=== PATIENT | male | born 1950 | race Caucasian/White ===

== ENCOUNTER 2023-06-08 08:36 | Emergency (ER) | payer MEDICARE, SELFPAY ==
[2023-06-08 08:38] VITALS: BP 179/96
[2023-06-08 09:00] VITALS: BMI 26.4
[2023-06-08 09:09] VITALS: BP 178/91
--- NOTE | 2023-06-08 09:28 | ED.GENMED ---
History of Present Illness
General
Chief Complaint: Abdominal Pain
Source: patient and spouse
Exam Limitations: none
Time Seen by Provider: 06/08/23 09:03
Nursing documentation reviewed up to this point in time: agreed with
Travel History
Have you had any contact with someone who has COVID-19?: No
Do you have any symptoms of coronavirus? Fever > 100 degrees, chills, cough, shortness of breath, sore throat, loss of taste or smell, muscle aches, or headache?: No
History of Present Illness
History of Present Illness:
72-year-old male diabetic, on insulin prior hip fracture presents with abdominal pain nausea dry heaves vomit x 1 with diarrhea onset about 4 days ago not keeping anything down, not eating much, crampy mid abdominal pain, no chest pain some chills
but no fever no sick contacts no foreign travel no raw or undercooked foods
Past History
Past History
ED Past Medical History: Asthma, HTN, Hypercholesterolemia, IDDM and NIDDM
ED Past Surgical History: Cholecystectomy, Orthopedic and Urological
Social History
Tobacco: Non-smoker
Alcohol: None
Drug: None
Personal:
Living: with family
Employment: Retired
Review of Systems
Review of Systems
All Other Systems: Not applicable
Constitutional: Reports fatigue and chills; Denies fever
EENT: Reports no symptoms
Respiratory: Reports no symptoms
Cardiac: Reports no symptoms
ABD/GI: Reports abdominal pain, nausea, vomiting and diarrhea
: Reports no symptoms
Musculoskeletal: Reports no symptoms
Skin: Reports no symptoms
Neurological: Reports dizzy and weakness
Phy Exam
Physical Exam
Physical Exam:
Physical Exam
General: Nontoxic mild distress
Neck: Dry lips
Heart: Regular
Lungs: no acute respiratory distress. clear bilaterally
Abdomen: Nontender
Neuro: alert and oriented. no focal neurological deficits
Skin: no rash
Psychiatric: well kept. interactive and cooperative
Extremities: no edema.
Course
Orders/Labs/Results
Orders:
Orders
06/08/23 09:04
Electrocardiogram (*1) Urgent
Reason for Study: Abdominal Pain
EKG- Treatment ONCE
06/08/23 09:14
CMP [Comprehensive Metabolic Panel] Urgent
Complete Blood Count/With Diff Urgent
Lipase Urgent
Urinalysis Reflex To Culture Urgent
Date Specimen was Collected: 06/08/23
Time Specimen was Collected: 09:13
Urine Microscopic Reflex Cult Urgent
06/08/23 09:28
0.9% Sodium Chloride 1000 ml [Nss] 1,000 ml IV BOLUS
Ondansetron Injectable [Zofran] 4 mg IV NOW STA
06/08/23 09:42
Norovirus by PCR Urgent
BHARATI Source: Feces/Stool
Specimen Description:
Stool Culture Urgent
BHARATI Source: Feces/Stool
Specimen Description:
06/08/23 10:19
US Abdomen Complete/Upper Urgent
Comment:
Reason For Exam: pain t marjorie up
Abnormal Lab Results
06/08/23
09:14
MCV 78.4 L fL
(80.0-94.0)
MCHC 37.1 H g/dL
(33.0-37.0)
Glucose 194 H mg/dl
(70-99)
Total Bilirubin 3.2 H mg/dl
(0.2-1.3)
Urine Ketones 3+ A
(Negative)
Ur Occult Blood Reflex Trace A
(Negative)
Urine Glucose 1+ A
(Negative)
Urine Albumin (Reflex) 1+ A
(Neg - Trace)
06/08/23 09:14
04/21/24 09:14
Vital Signs
Initial and Last Documented VS:
Initial Vital Signs
Temp Pulse Resp BP Pulse Ox
97.7 F 75 20 179/96 98
06/08/23 08:38 06/08/23 08:38 06/08/23 08:38 06/08/23 08:38 06/08/23 08:38
Last Documented Vital Signs
Temp Pulse Resp BP Pulse Ox
97.7 F 71 15 179/96 100
06/08/23 08:38 06/08/23 08:47 06/08/23 08:47 06/08/23 08:38 06/08/23 09:00
MDM/Problems Addressed
Differential Diagnosis Includes:
Enteritis viral syndrome DKA dehydration
MDM/Problems Addressed:
Vomiting diarrhea
Chronic conditions affecting care:
Diabetes
Chronic conditions affecting care: DM
Acute Exacerbation and/or Progression of Chronic Illness: DM and Previous abdomnial surgery
*Pulse Oximetry
Patient hypoxic: no
*EKG
Interpreted by ED Provider?: Yes
Interpretation: normal
Comparison EKG: no comparison EKG present
Heart Rate: 78
Rate: normal
QRS Pattern: normal QRS
Ischemia: no ischemia
*Critical Care Note
Total Time (30-74mins, 75-104mins- exclusive of procedures): Not Applicable
Update Note
Update Note:
10:15 AM labs noted Cristina marsh is, looks like he had a cholecystectomy will check ultrasound to look at his common duct, otherwise his labs are fairly unremarkable, EKG nonischemic continue supportive care
12:25 PM patient states he is feeling much better ambulated without difficulty reviewed ultrasound with him, states he is always had high bilirubins before
ED Attending Note
-
Portions of this chart may have been created with voice recognition software.� Occasional wrong word or��sound alike� substitutions may have occurred due to the inherent limitations of voice recognition software.
Discharge Plan
Departure
Patient Disposition: Home (Routine Discharge)
Date of Disposition: 06/08/23
Time of Disposition: 12:26
Patient with high blood pressure during this ER visit?: No
Condition: Good
Discharge Problem:
Dehydration
Instructions: Nausea and Vomiting, Adult (DC), Diarrhea in adolescents and adults
Prescriptions:
No Action
polyethylene glycol 3350 [Miralax] 17 gram Powder In Packet
17 g PO DAILY PRN (Reason: constipation)
insulin lispro [Humalog KwikPen Insulin] 100 unit/mL Insulin Pen
3 unit SC AC
dutasteride 0.5 mg Capsule
0.5 mg PO DAILY
insulin glargine [Lantus Solostar U-100 Insulin] 100 unit/mL (3 mL) Insulin Pen
10 unit SC HS
oxycodone 10 mg Tablet
10 mg PO Q6H
Rx Instructions:
12/03/2022, patient filled this medication on 11/05/2022 for 120 tablets according to PDMP.
Serovital Hgh Supplement
1 cap PO HS
aspirin 325 mg Tablet
325 mg PO DAILY Qty: 30 0RF
docusate sodium 100 mg Capsule
100 mg PO BID Qty: 20 0RF
midodrine 5 mg Tablet
5 mg PO 0800,1300,1700 30 Days Qty: 90 0RF
oxycodone 5 mg Tablet
5 mg PO TIDPRN PRN (Reason: severe pain) 3 Days Qty: 10 0RF
acetaminophen [Tylenol Arthritis Pain] 650 mg tablet extended release
650 mg PO Q8H Qty: 30 0RF
Referrals:
Shayan Turpin MD [Family Provider] -
Interventions
Interventions:
*Risk Screen - Suicide Last Done: 06/08/23 09:38
*General Assessment Last Done: 06/08/23 09:00
*Neglect/Abuse Screening Last Done: 06/08/23 09:38
ED- Fall Risk Assessment Last Done: 06/08/23 09:00
*ED COVID-19 Vaccine History Last Done: 06/08/23 09:00
ZD-Xfmorb-Omtlzqxwbd Assessment Last Done: 06/08/23 09:00
Discharge Date and Time
Print Language: SAMOAN
[2023-06-08 09:31] LABS: % Basophils 0.5 % (0-2); % Eosinophils 1.5 % (0-6); % Immature Granulocytes 0.3 % (0-0.5); % Monocytes 5.6 % (1.7-9.3); % Neutrophils 70.1 % (42.2-75.2); Absolute Eosinophils 0.1 10^3/uL (0-0.7); Absolute Lymphocytes 1.6 10^3/uL (1.2-3.4); Absolute Monocytes 0.4 10^3/uL (0.1-0.6); Absolute Neutrophils 5.1 10^3/uL (1.4-6.5); Hematocrit 41.8 % (39.0-52.0); Hemoglobin 15.5 g/dL (13.0-18.0); Mean Corp Hgb Conc. 37.1 g/dL (33.0-37.0); Mean Corpuscular Hgb 29.1 pg (27.0-31.0); Mean Corpuscular Volume 78.4 fL (80.0-94.0); Mean Platelet Volume 8.8 fL (7.4-10.4); Nucleated Red Blood Cells % 0 % (-); Platelet Count 188 10^3/uL (130-400); Red Blood Cell Count 5.33 10^6/uL (4.70-6.10); Red Cell Dist. Width 13.4 % (11.5-14.5); White Blood Cell Count 7.3 10^3/uL (4.8-10.8)
[2023-06-08] MEDS: ZOFRAN 4 MG IV (09:34)
[2023-06-08] MEDS: NSS 1000 IV (09:35)
[2023-06-08 09:38] LABS: ALT (SGPT) 14 U/L (0-50); AST (SGOT) 22 U/L (17-59); Albumin 4.8 g/dl (3.5-5.0); Alkaline Phosphatase 87 U/L (38-126); Blood Urea Nitrogen 17 mg/dl (9-20); Calcium 9.7 mg/dl (8.4-10.2); Carbon Dioxide 24 mmol/L (22-30); Chloride 103 mmol/L (98-107); Estimated Creatinine Clearance 72 ml/min; Glucose 194 mg/dl (70-99); Lipase 86 U/L (23-300); Potassium 3.5 mmol/L (3.5-5.1); Sodium 136 mmol/L (135-145); Total Bilirubin 3.2 mg/dl (0.2-1.3); Total Protein 7.8 g/dl (6.3-8.2); eGFR > 60.00
[2023-06-08 09:39] LABS: Urine Albumin 1+ (Neg - Trace); Urine Bilirubin Negative (Negative); Urine Character Clear (Clear); Urine Color Yellow; Urine Glucose 1+ (Negative); Urine Ketone 3+ (Negative); Urine Leukocyte Negative (Negative); Urine Nitrite Negative (Negative); Urine Occult Blood Trace (Negative); Urine Specific Gravity 1.025 (<1.030); Urine Urobilinogen Negative (Neg - 1+)
[2023-06-08 10:00] VITALS: BP 164/83
[2023-06-08 10:32] LABS: Urine Hyaline Cast 0-2 /LPF (0-2); Urine Squamous Cell 0-2 /LPF (Few); Urine White Cell 0-2 /HPF (0-5)
[2023-06-08 10:33] LABS: Urine Red Blood Cell 0-2 /HPF (0-2)
[2023-06-08 11:09] VITALS: BP 172/82
[2023-06-08 12:06] VITALS: BP 160/86
--- NOTE | 2023-06-08 13:05 | EDRN ---
REviewed discharge instructions with patient. Verbalized understanding. Ambulated with steady gait to the lobby.
[2023-06-08 13:06] VITALS: BP 160/82
== END 2023-06-08 13:06 | disposition home or self-care (01) ==
LOC: EMR 08:36
PROVIDERS: Student in an Organized Health Care Education/Training Program; EMERGENCY PHYSICIAN Emergency Medicine; FAMILY PHYSICIAN Family Medicine
DX: E86.0 Dehydration (principal); E11.9 Type 2 diabetes mellitus without complications
CPT/HCPCS: 99285; 96374; 96361; 76700; 80053; 81003; 81015; 83690; 85025; 93005

== ENCOUNTER 2023-06-25 19:46 | Emergency (ER) | payer MEDICARE, SELFPAY ==
[2023-06-25 19:50] VITALS: BP 121/82; BMI 25.8
[2023-06-25 20:04] VITALS: BP 147/69
--- NOTE | 2023-06-25 20:36 | ED.GENMED ---
History of Present Illness
General
Chief Complaint: Heart Rate Problem
Source: patient, records and spouse
Exam Limitations: none
Time Seen by Provider: 06/25/23 19:58
Nursing documentation reviewed up to this point in time: agreed with
Travel History
Have you had any contact with someone who has COVID-19?: No
Do you have any symptoms of coronavirus? Fever > 100 degrees, chills, cough, shortness of breath, sore throat, loss of taste or smell, muscle aches, or headache?: No
History of Present Illness
History of Present Illness:
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
until today did not keep down much fluid, vomited, blood sugars elevated no fevers, no chest pain or shortness of breath felt like sleeping a lot, no diarrhea positive abdominal cramping
Past History
Past History
ED Past Medical History: Asthma, HTN, Hypercholesterolemia, IDDM and NIDDM
ED Past Surgical History: Cholecystectomy, Orthopedic and Urological
Social History
Tobacco: Non-smoker
Alcohol: None
Drug: None
Personal:
Living: with family
Employment: Retired
Review of Systems
Review of Systems
All Other Systems: Not applicable
Constitutional: Reports fatigue; Denies fever
EENT: Reports no symptoms
Respiratory: Reports no symptoms
Cardiac: Denies chest pain
ABD/GI: Reports abdominal pain, nausea and vomiting; Denies diarrhea or bloody stools
: Reports no symptoms
Musculoskeletal: Reports no symptoms
Skin: Reports no symptoms
Neurological: Reports weakness
Endocrine: Reports no symptoms
Hematologic/Lymphatic: Reports no symptoms
Phy Exam
Physical Exam
Physical Exam:
Physical Exam
General: 72-year-old male cooperative nontoxic
Neck: Dry lips patch on the left
Heart: Tachycardic
Lungs: no acute respiratory distress. clear bilaterally
Abdomen: Soft mild diffuse
Neuro: alert and oriented. Able to lift his legs and arms off the bed without difficulty, clear speech
Skin: no rash
Psychiatric: cooperative
Extremities: no edema.
Course
Orders/Labs/Results
Orders:
Orders
06/25/23 19:53
EKG [Electrocardiogram (*1)] Urgent
Reason for Study: Tachycardia
EKG- Treatment ONCE
06/25/23 20:28
0.9% Sodium Chloride 1000 ml [Nss] 1,000 ml IV BOLUS
Ondansetron Injectable [Zofran] 4 mg IV NOW STA
Pantoprazole [Protonix IV] 40 mg IV NOW STA
06/25/23 20:38
B-Hydroxybutyrate Urgent
Complete Blood Count/With Diff Urgent
Comprehensive Metabolic Panel Urgent
Troponin I Urgent
06/25/23 20:39
CT Head W/o Iv Contrast Urgent
Comment:
Reason For Exam: Weakness vomiting recurrence
06/25/23 21:32
UA Reflex to Culture [Urinalysis Reflex To Culture] Urgent
Date Specimen was Collected: 06/25/23
Time Specimen was Collected: 21:24
06/25/23 22:54
Ondansetron Orally Disint [Zofran Odt (Orally Disintegrating)] 4 mg PO NOW STA
Abnormal Lab Results
06/25/23 06/25/23
20:38 21:32
WBC 18.9 H 10^3/uL
(4.8-10.8)
RBC 4.64 L 10^6/uL
(4.70-6.10)
Hct 37.3 L %
(39.0-52.0)
RDW 15.1 H %
(11.5-14.5)
Abs Immat Gran (auto) 0.2 H 10^3/uL
(0-0.05)
Absolute Neuts (auto) 17.4 H 10^3/uL
(1.4-6.5)
Absolute Lymphs (auto) 0.6 L 10^3/uL
(1.2-3.4)
Immature Gran % 1.2 H %
(0-0.5)
Neutrophils % 91.9 H %
(42.2-75.2)
Lymphocytes % 3.2 L %
(20.5-51.1)
Sodium 131 L mmol/L
(135-145)
Carbon Dioxide 21 L mmol/L
(22-30)
Glucose 242 H mg/dl
(70-99)
Total Bilirubin 5.4 H mg/dl
(0.2-1.3)
AST 130 H U/L
(17-59)
ALT 192 H U/L
(0-50)
Urine Ketones 1+ A
(Negative)
Urine Bilirubin 1+ A
(Negative)
Urine Urobilinogen 2+ A
(Neg - 1+)
Urine Glucose 3+ A
(Negative)
06/25/23 20:38
06/25/23 20:38
Vital Signs
Initial and Last Documented VS:
Initial Vital Signs
Temp Pulse Resp BP Pulse Ox
98.3 F 127 24 121/82 96
06/25/23 19:50 06/25/23 19:50 06/25/23 19:50 06/25/23 19:50 06/25/23 19:50
Last Documented Vital Signs
Temp Pulse Resp BP Pulse Ox
98.7 F 98 24 136/67 97
06/25/23 22:53 06/25/23 22:45 06/25/23 22:45 06/25/23 22:00 06/25/23 22:45
MDM/Problems Addressed
Differential Diagnosis Includes:
Dehydration electrolyte abnormality viral syndrome,
MDM/Problems Addressed:
Fatigue weakness nausea vomiting
*Critical Care Note
Total Time (30-74mins, 75-104mins- exclusive of procedures): Not Applicable
Update Note
Update Note:
10:45 PM CAT scan noted labs noted patient states he is feeling much better he is tolerating some ice chips and water now he is scheduled to have a CT angio to evaluate his 3rd nerve palsy on Friday he is can have to prep with Benadryl and steroid
before hand I did offer the family and expediting scan this evening patient states he would like to go home and recuperate and come back as scheduled
He previously had a 6th nerve palsy years ago treated with prisms, no issues with 3rd nerve palsy has ptosis on the left on exam pupils reactive
His white blood cell count is up, his abdomen is soft and nontender has not received any narcotics
ED Attending Note
-
Portions of this chart may have been created with voice recognition software.� Occasional wrong word or��sound alike� substitutions may have occurred due to the inherent limitations of voice recognition software.
Discharge Plan
Departure
Patient Disposition: Home (Routine Discharge)
Date of Disposition: 06/25/23
Time of Disposition: 22:52
Patient with high blood pressure during this ER visit?: No
Condition: Good
Discharge Problem:
Vomiting
Instructions: [place] Diet, Acute Nausea and Vomiting
Prescriptions:
New
ondansetron 4 mg tablet,disintegrating
4 mg PO Q8H PRN (Reason: nausea and vomiting) Qty: 20 0RF
No Action
polyethylene glycol 3350 [Miralax] 17 gram Powder In Packet
17 g PO DAILY PRN (Reason: constipation)
insulin lispro [Humalog KwikPen Insulin] 100 unit/mL Insulin Pen
3 unit SC AC
dutasteride 0.5 mg Capsule
0.5 mg PO DAILY
insulin glargine [Lantus Solostar U-100 Insulin] 100 unit/mL (3 mL) Insulin Pen
10 unit SC HS
oxycodone 10 mg Tablet
10 mg PO Q6H
Rx Instructions:
12/03/2022, patient filled this medication on 11/05/2022 for 120 tablets according to PDMP.
Serovital Hgh Supplement
1 cap PO HS
aspirin 325 mg Tablet
325 mg PO DAILY Qty: 30 0RF
docusate sodium 100 mg Capsule
100 mg PO BID Qty: 20 0RF
midodrine 5 mg Tablet
5 mg PO 0800,1300,1700 30 Days Qty: 90 0RF
oxycodone 5 mg Tablet
5 mg PO TIDPRN PRN (Reason: severe pain) 3 Days Qty: 10 0RF
acetaminophen [Tylenol Arthritis Pain] 650 mg tablet extended release
650 mg PO Q8H Qty: 30 0RF
ondansetron 4 mg tablet,disintegrating
4 mg PO Q8H PRN (Reason: nausea and vomiting) Qty: 10 0RF
loperamide [Imodium A-D] 2 mg capsule
2 mg PO Q6H PRN (Reason: loose stool) Qty: 20 0RF
Referrals:
Shayan Turpin MD [Family Provider] - Next open appointment
Activity Restrictions/Additional Instructions:
Return to the ER for worsening symptoms obtain your CAT scan on Friday as scheduled
Interventions
Interventions:
*Risk Screen - Suicide Last Done: 06/25/23 19:50
*General Assessment Last Done: 06/25/23 21:05
*Neglect/Abuse Screening Last Done: 06/25/23 19:50
ED- Fall Risk Assessment Last Done: 06/25/23 19:50
*ED COVID-19 Vaccine History Last Done: 06/25/23 21:05
ED- Cardiac Assessment Last Done: 06/25/23 21:04
ED- Pulmonary Assessment Last Done: 06/25/23 21:04
Discharge Date and Time
Print Language: [place]
[2023-06-25] MEDS: NSS 1000 IV (20:40)
[2023-06-25] MEDS: ZOFRAN 4 MG IV (20:40)
[2023-06-25] MEDS: PROTONIX IV 40 MG IV (20:40)
[2023-06-25 20:47] LABS: % Basophils 0.3 % (0-2); % Eosinophils 0.2 % (0-6); % Immature Granulocytes 1.2 % (0-0.5); % Lymphocytes 3.2 % (20.5-51.1); % Monocytes 3.2 % (1.7-9.3); % Neutrophils 91.9 % (42.2-75.2); Absolute Basophils 0.1 10^3/uL (0-0.2); Absolute Immature Granulocytes 0.2 10^3/uL (0-0.05); Absolute Lymphocytes 0.6 10^3/uL (1.2-3.4); Absolute Monocytes 0.6 10^3/uL (0.1-0.6); Absolute Neutrophils 17.4 10^3/uL (1.4-6.5); Hematocrit 37.3 % (39.0-52.0); Hemoglobin 13.8 g/dL (13.0-18.0); Mean Corpuscular Hgb 29.7 pg (27.0-31.0); Mean Corpuscular Volume 80.4 fL (80.0-94.0); Mean Platelet Volume 9.1 fL (7.4-10.4); Nucleated Red Blood Cells % 0 % (-); Platelet Count 184 10^3/uL (130-400); Red Blood Cell Count 4.64 10^6/uL (4.70-6.10); Red Cell Dist. Width 15.1 % (11.5-14.5); White Blood Cell Count 18.9 10^3/uL (4.8-10.8)
[2023-06-25 21:00] VITALS: BP 138/67
[2023-06-25 21:05] LABS: ALT (SGPT) 192 U/L (0-50); AST (SGOT) 130 U/L (17-59); Albumin 3.9 g/dl (3.5-5.0); Alkaline Phosphatase 104 U/L (38-126); Blood Urea Nitrogen 20 mg/dl (9-20); Calcium 8.9 mg/dl (8.4-10.2); Carbon Dioxide 21 mmol/L (22-30); Chloride 100 mmol/L (98-107); Estimated Creatinine Clearance 72 ml/min; Glucose 242 mg/dl (70-99); Potassium 3.5 mmol/L (3.5-5.1); Sodium 131 mmol/L (135-145); Total Bilirubin 5.4 mg/dl (0.2-1.3); Total Protein 6.4 g/dl (6.3-8.2); eGFR > 60.00
[2023-06-25 21:12] LABS: B-Hydroxybutyrate 0.15 mmol/L (0.02-0.27)
[2023-06-25 21:15] LABS: Troponin I 0.019 ng/ml
[2023-06-25 21:37] LABS: Urine Albumin Trace (Neg - Trace); Urine Bilirubin 1+ (Negative); Urine Character Clear (Clear); Urine Color Yellow; Urine Glucose 3+ (Negative); Urine Ketone 1+ (Negative); Urine Leukocyte Negative (Negative); Urine Nitrite Negative (Negative); Urine Occult Blood Negative (Negative); Urine Urobilinogen 2+ (Neg - 1+)
[2023-06-25 22:00] VITALS: BP 136/67
[2023-06-25] MEDS: ZOFRAN ODT (ORALLY DISINTEGRATING) 4 MG PO (22:59)
== END 2023-06-25 23:16 | disposition home or self-care (01) ==
LOC: EMR 19:46
PROVIDERS: EMERGENCY PHYSICIAN Emergency Medicine; FAMILY PHYSICIAN Family Medicine
DX: R11.2 Nausea with vomiting, unspecified (principal); E11.9 Type 2 diabetes mellitus without complications
CPT/HCPCS: 99285; 96374; 96375; 96361; 70450; 80053; 81003; 82010; 84484; 85025; 93005

== ENCOUNTER → 2023-07-08 14:24 | Outpatient (REF) | payer MEDICARE, SELFPAY | LOC: RAD 14:24 | PROVIDERS: ATTENDING PHYSICIAN Ophthalmology; FAMILY PHYSICIAN Family Medicine | DX: H49.00 Third [oculomotor] nerve palsy, unspecified eye (principal) | CPT/HCPCS: 70496; Q9967 ==

== ENCOUNTER → 2023-07-15 20:01 | Outpatient (REF) | payer MEDICARE, SELFPAY | LOC: MRI 3T 20:01 | PROVIDERS: ATTENDING PHYSICIAN Ophthalmology; FAMILY PHYSICIAN Family Medicine | DX: H49.00 Third [oculomotor] nerve palsy, unspecified eye (principal) | CPT/HCPCS: 70553; A9575 ==

== ENCOUNTER 2023-08-03 23:59 | Inpatient (IN) | payer MEDICARE, SELFPAY ==
[2023-08-03 19:31] VITALS: BP 155/88
[2023-08-03 19:57] LABS: % Basophils 0.6 % (0-2); % Eosinophils 0.9 % (0-6); % Immature Granulocytes 0.2 % (0-0.5); % Lymphocytes 9.3 % (20.5-51.1); % Monocytes 5.2 % (1.7-9.3); % Neutrophils 83.8 % (42.2-75.2); Absolute Basophils 0.1 10^3/uL (0-0.2); Absolute Eosinophils 0.1 10^3/uL (0-0.7); Absolute Lymphocytes 0.8 10^3/uL (1.2-3.4); Absolute Monocytes 0.4 10^3/uL (0.1-0.6); Absolute Neutrophils 7.1 10^3/uL (1.4-6.5); Hematocrit 36.5 % (39.0-52.0); Hemoglobin 12.7 g/dL (13.0-18.0); Mean Corp Hgb Conc. 34.8 g/dL (33.0-37.0); Mean Corpuscular Hgb 29.1 pg (27.0-31.0); Mean Corpuscular Volume 83.5 fL (80.0-94.0); Mean Platelet Volume 9.3 fL (7.4-10.4); Nucleated Red Blood Cells % 0 % (-); Platelet Count 221 10^3/uL (130-400); Red Blood Cell Count 4.37 10^6/uL (4.70-6.10); Red Cell Dist. Width 16.1 % (11.5-14.5); White Blood Cell Count 8.5 10^3/uL (4.8-10.8)
[2023-08-03 20:12] LABS: ALT (SGPT) 119 U/L (0-50); AST (SGOT) 193 U/L (17-59); Albumin 3.9 g/dl (3.5-5.0); Alkaline Phosphatase 316 U/L (38-126); Blood Urea Nitrogen 12 mg/dl (9-20); Calcium 9.2 mg/dl (8.4-10.2); Carbon Dioxide 27 mmol/L (22-30); Chloride 101 mmol/L (98-107); Glucose 222 mg/dl (70-99); Lipase 285 U/L (23-300); Potassium 3.5 mmol/L (3.5-5.1); Sodium 139 mmol/L (135-145); Total Bilirubin 5.5 mg/dl (0.2-1.3); Total Protein 7.3 g/dl (6.3-8.2); eGFR > 60.00
[2023-08-03 20:42] LABS: Urine Albumin 1+ (Neg - Trace); Urine Bilirubin 3+ (Negative); Urine Character Clear (Clear); Urine Color Amber; Urine Glucose 2+ (Negative); Urine Ketone 1+ (Negative); Urine Leukocyte Trace (Negative); Urine Nitrite Positive (Negative); Urine Occult Blood Trace (Negative); Urine Specific Gravity 1.025 (<1.030); Urine Urobilinogen 4+ (Neg - 1+)
[2023-08-03 21:05] LABS: Urine Amorphous Seen
[2023-08-03 21:06] LABS: Urine Bacteria Few (Negative); Urine Calcium Oxalate Crystals Present
[2023-08-03 21:11] LABS: Urine Red Blood Cell 16-20 /HPF (0-2)
[2023-08-03 21:12] LABS: Urine White Cell None Seen /HPF (0-5)
--- NOTE | 2023-08-03 21:25 | ED.GENMED ---
History of Present Illness
General
Chief Complaint: Abdominal Pain
Source: patient
Time Seen by Provider: 08/03/23 21:07
Travel History
Have you had any contact with someone who has COVID-19?: No
Do you have any symptoms of coronavirus? Fever > 100 degrees, chills, cough, shortness of breath, sore throat, loss of taste or smell, muscle aches, or headache?: No
History of Present Illness
History of Present Illness:
This patient is a 72-year-old male who says that he has been sick off and on for at least the last 6 weeks. He has been to the emergency department twice and just saw his GI doctor last week, is due to get labs tomorrow looking for mono, CMV, and a
hepatitis panel. he developed diffuse abdominal cramping associated with nausea, anorexia, and episodes of vomiting that are generally relieved with antiemetic medication. He describes the abdominal discomfort is mostly in the upper area
and constant, described as 'achy' without exacerbating relieving factors, without radiation. His last bowel movement was yesterday morning and is normal in appearance, no light stools, black stools, or blood. He denies fever, chills, chest pain,
dyspnea, new back pain. He noted since that his urine has been dark but today he noted gross hematuria. Patient denies recent Tylenol use, patient does not drink alcohol. Patient denies travel.
Past History
Past History
ED Past Medical History: Asthma, HTN, Hypercholesterolemia, IDDM and NIDDM
ED Past Surgical History: Cholecystectomy, Orthopedic and Urological
Social History
Tobacco: Non-smoker
Alcohol: None
Drug: Marijuana
Personal:
Living: with family
Employment: Retired
Phy Exam
Physical Exam
Physical Exam:
GENERAL: Alert , in no apparent distress
EYE: pupils equal and reactive
NECK: Supple, no significant adenopathy.
ENT: o/p clr, mm dry
CARDIAC: Regular rate and rhythm .
LUNGS: Clear breath sounds bilaterally, no acute respiratory distress, no wheezes/rales/rhonchi
ABDOMEN: Soft, diffuse nonspecific mild tenderness, no r/g, no cvat
NEUROLOGICAL: Alert and oriented, no focal neuro deficits
SKIN: Warm and dry, skin intact.
MUSCULOSKELETAL: No edema, well perfused.
PSYCH: Normal and appropriate interaction.
Course
Orders/Labs/Results
Orders:
Orders
08/03/23 19:34
Electrocardiogram (*1) Urgent
Reason for Study: Abdominal Pain
EKG- Treatment ONCE
IV Insert/Care/Rem.- Treatment PRN
08/03/23 19:50
Complete Blood Count/With Diff Urgent
Comprehensive Metabolic Panel Urgent
Lipase Urgent
08/03/23 20:31
Urinalysis Reflex To Culture Urgent
Date Specimen was Collected: 08/03/23
Time Specimen was Collected: 19:34
Urine Microscopic Reflex Cult Urgent
Urine Culture Urgent
BHARATI Source: U
Specimen Description:
Date Specimen was Collected: 08/03/23
Time Specimen was Collected: 19:34
08/03/23 21:27
0.9% Sodium Chloride 500 ml [Nss] 500 ml IV BOLUS
Ondansetron Injectable [Zofran] 4 mg IV NOW STA
08/03/23 21:32
Tylenol [Acetaminophen] Stat
08/03/23 22:17
CT Abd/pel Without Iv Or Oral Urgent
Comment:
Reason For Exam: abd pain,n, v, abnl lfts
08/03/23 23:15
Morphine Sulfate 4 mg .ROUTE .STK-MED ONE
Morphine Sulfate 4 mg IV NOW STA
08/03/23 23:47
Admit/Transfer Patient As Directed
Co-Sign Provider:
Level of Care: Inpatient admission
Assign to:: Medical/Surgical
Physician / Group: Bruce
Diagnosis: Choledolcholithiasis
Reason for Hospitalization: IVFs, GI Consult
Expected length of stay greater than two midnights?: Yes
ELOS- Estimated Length of Stay in days: 3
I certify the patient meets the requirements for IP care: Yes
08/03/23 23:48
Code Status As Directed
Resuscitation Status: Full Code
08/04/23 01:57
0.9% Sodium Chloride 1000 ml [Nss] 1,000 ml IV 80 mls/hr
Acetaminophen [Tylenol] 650 mg PO Q4HPRN PRN
Dextrose 50%-Water [Dextrose 50% Syringe] 12.5 grams IV [id number] PRN
Glucagon [GlucaGen] 1 mg IM PRN PRN
HYDROmorphone [Dilaudid] 0.5 mg IV Q3HPRN PRN
Ondansetron Injectable [Zofran] 4 mg IV Q6HPRN PRN
08/04/23 01:57
Consult Notification Routine
Specialty to Notify: Gastroenterology
Date consulting provider notified: 08/04/23
Time consulting provider notified: 06:00
Notified:: Service
GASTROINTESTINAL CONSULT Routine
Consulting Provider: Jimmy Correa
Was physician already notified: No
Reason for consult: CBD Stone
Activity As Directed
Activity Level: Out of Bed-Early Mobility
With Assistance
Bedside Glucose Monitoring As Directed
Frequency: AC&HS
Additional Instructions:: Change to q6h if pt on TPN, tube feeding or not eating
I&O [Intake/ Output] As Directed
Frequency: q12h
Vital Signs As Directed
Frequency: Per unit guidelines
Weight As Directed
Frequency: Daily
DX Deep Vein Thrombosis Video Routine
08/04/23 Breakfast
NPO
Allow oral meds: Yes
Allow clear liquids: Sips of Clears
NPO with Ice Chips: Yes
08/04/23 06:30
Complete Blood Count/No Diff IN AM
Comprehensive Metabolic Panel IN AM
Glycohemoglobin (HgbA1c) IN AM
Magnesium IN AM
08/04/23 07:30
Insulin Aspart Corrective Mod [Novolog Flexpen-Moderate Resistance] See Protocol SC AC
08/04/23 08:00
Finasteride [Proscar] 5 mg PO DAILY
08/04/23 18:00
Enoxaparin Sodium [Lovenox] 40 mg SC QPM
Abnormal Lab Results
08/03/23 08/03/23 08/03/23
19:50 20:31 21:32
RBC 4.37 L 10^6/uL
(4.70-6.10)
Hgb 12.7 L g/dL
(13.0-18.0)
Hct 36.5 L %
(39.0-52.0)
RDW 16.1 H %
(11.5-14.5)
Absolute Neuts (auto) 7.1 H 10^3/uL
(1.4-6.5)
Absolute Lymphs (auto) 0.8 L 10^3/uL
(1.2-3.4)
Neutrophils % 83.8 H %
(42.2-75.2)
Lymphocytes % 9.3 L %
(20.5-51.1)
Glucose 222 H mg/dl
(70-99)
Total Bilirubin 5.5 H mg/dl
(0.2-1.3)
AST 193 H U/L
(17-59)
ALT 119 H U/L
(0-50)
Alkaline Phosphatase 316 H U/L
(38-126)
Urine Ketones 1+ A
(Negative)
Ur Occult Blood Reflex Trace A
(Negative)
Urine Nitrite (Reflex) Positive A
(Negative)
Urine Bilirubin 3+ A
(Negative)
Urine Urobilinogen 4+ A
(Neg - 1+)
Leukocyte Esterase Rfl Trace A
(Negative)
Urine RBC 16-20 A /HPF
(0-2)
Urine Bacteria (Reflex) Few A
(Negative)
Urine Glucose 2+ A
(Negative)
Urine Albumin (Reflex) 1+ A
(Neg - Trace)
Acetaminophen < 10 L ug/ml
(10-30)
08/03/23 19:50
08/03/23 19:50
Vital Signs
Initial and Last Documented VS:
Initial Vital Signs
Temp Pulse Resp BP Pulse Ox
97.9 F 80 20 155/88 99
08/03/23 19:31 08/03/23 19:31 08/03/23 19:31 08/03/23 19:31 08/03/23 19:31
Last Documented Vital Signs
Temp Pulse Resp BP Pulse Ox
98 F 69 16 160/94 99
08/06/23 07:45 08/06/23 07:45 08/06/23 07:45 08/06/23 07:45 08/06/23 07:45
*Critical Care Note
Total Time (30-74mins, 75-104mins- exclusive of procedures): Not Applicable
Update Note
Update Note:
Patient presents to the Emergency Department with __abdominal pain, nausea, vomiting
Number and Complexity of Problems Addressed at the Encounter
� Chronic conditions affecting care:
� Acute Exacerbation and/or Progression of Chronic Illness:
� Differential Diagnosis includes: But not limited to infectious hepatitis, Tylenol related hepatitis, gastroenteritis, kidney stone, etc. etc.
Amount and/or Complexity of Data to be Reviewed and Analyzed
� I performed an independent evaluation of and my interpretation is:
EKG:read by me, nsr with 1st degree block, no acute ischemia
CT:Markedly limited evaluation without intravenous or oral contrast.
Mild hepatosplenomegaly.
Prior cholecystectomy. Calcific density for which approximate 0.7 cm calculus at the level of the distal common bile duct as well as biliary tract dilatation cannot be excluded, evaluation limited without intravenous contrast. Recommend MRI/MRCP
complete evaluation.
Small volume and creatinine calcifications compatible with chronic pancreatitis.
Cannot exclude small duodenal diverticulum.
Small simple right renal cyst.
Marked beam hardening artifact from left hip arthroplasty significantly limiting evaluation of the true pelvic soft tissues.
Xrays:
Laboratory Studies:elevated bilirubin, transaminases
Other:
� Review of other/old records reveals:
� Clinical information was obtained by an independent historian: who is bedside
� Prescriptions/Medications Considered but not given:
� Further testing considered but not performed:
Risk of Complications and/or Morbidity or Mortality of Patient Management
� Social determinants of health affecting care:
� Discussion with other providers (PCP, Hospitalists, Consultants, etc):
� Escalation of care including admission/observation vs risk of discharge considered: 1103 pm...ct suggestive of possible cbd stone, with n/v/abd pain and lfts abnl will need to further explore with MRCP. Will text hospitalist
for admission, and they to consult GI. No fever, leukocytosis, focal pain, etc to suggest ascend cholangitis.
ED Attending Note
-
Portions of this chart may have been created with voice recognition software.� Occasional wrong word or��sound alike� substitutions may have occurred due to the inherent limitations of voice recognition software.
Discharge Plan
Departure
Patient Disposition: Admit
Date of Disposition: 08/03/23
Time of Disposition: 23:04
Presentation/result/management discussed w/ accepting MD/DO: Hospitalist
Condition: Good
Discharge Problem:
Abdominal pain
Interventions
Interventions:
*Risk Screen - Suicide Last Done: 08/03/23 21:56
*General Assessment Last Done: 08/03/23 21:56
*Neglect/Abuse Screening Last Done: 08/03/23 21:56
ED- Fall Risk Assessment Last Done: 08/03/23 21:56
*ED COVID-19 Vaccine History Last Done: 08/03/23 21:56
*Nursing Disposition Last Done: 08/04/23 01:53
HW-Rrnfpl-Cpzalnekzg Assessment Last Done: 08/03/23 21:41
Discharge Date and Time
Discharge Date/Time: 08/04/23 01:53
[2023-08-03 21:28] VITALS: BP 154/75
[2023-08-03] MEDS: NSS 500 IV (21:32)
[2023-08-03] MEDS: ZOFRAN 4 MG IV (21:33)
[2023-08-03 21:57] LABS: Acetaminophen < 10 ug/ml (10-30)
[2023-08-03 22:00] VITALS: BP 146/74
[2023-08-03] MEDS: MORPHINE SULFATE 4 MG IV (23:16)
[2023-08-03 23:25] VITALS: BP 176/76
--- NOTE | 2023-08-03 23:57 | HPS.HSE ---
Addendum entered and electronically signed by Brian Barrera DO 08/04/23 01:09:
Patient seen and examined independently. Agree with findings and plan as set forth yb Claire Hayden PA-C.
Patient is a 72y M with PMH significant for DM-II and chronic low back pain who presents to ED complaining of intermittent abdominal pain, nausea / vomiting and general weakness and malaise for the past 2-3 months. Patient has been seen in the
ED on multiple prior occasions for similar symptoms. Today patient had recurrent pain and nausea and returned to the ED. Work-up here reveals abnormal LFTs (specifically bilirubin) and CT showing possible CBD stone / dilation.
Ass:
Abdominal Pain, N/V
Abnormal LFTs / Hyperbilirubinemia
DM-II
Chronic Low Back Pain
Chronic Opioid Dependence
Plan:
Admit for further evaluation and treatment.
NPO, IVFs, pain control, etc.
Check MRCP in the AM for better evaluation of CBD / possible obstruction.
GI evaluation for additional recommendations.
Follow for any new / worsening symptoms.
Original Note:
Family Physician
-
Family Physician: Shayan Turpin
Chief Complaint
-
Nausea and Abdominal Pain
History of Present Illness
This is a 72 year old male with past medical history of diabetes mellitus, and chronic pain with opioid dependence who presents to the emergency department with abdominal pain. The patient states he has been experiencing waxing and waning abdominal
pain, nausea, and vomiting since June 07. He states he has been managing this with Zofran at home but notes the abdominal pain, nausea, and vomiting was worse today, prompting him to present to the emergency department. The patient reports he was
in the emergency department in both May and June for similar symptoms. The patient states the pain is diffuse but is the worst in the right upper quadrant. He notes his noticed his skin has been slightly yellow since his symptoms began. The
patient reports he had his gallbladder removed in 2006. He denies chest pain, dyspnea, sweats, fever, chills, and hematemesis.
Medical History
Past Medical History
Past Medical History: Reports Other
Additional Past Medical History:
Diabetes Mellitus, Type II
Chronic Pain with Opioid Dependence
Peripheral Neuropathy
Osteoarthritis
BPH
Past Surgical History: Reports Other
Additional Past Surgical History:
Left Hip ORIF
Cholecystectomy
Social History
Tobacco: Non-smoker
Alcohol: None
Family History
Family History: Other (Father: Metastatic Lung Cancer)
Allergies / Home Medications
Allergies reflects when Allergies were last updated in [employer].
Home Medications with original date entered in [employer]
Allergy/Medication List:
Allergies
Allergy/AdvReac Type Severity Reaction Status Date / Time
cat dander Allergy COUGH Verified 08/03/23 19:29
ciprofloxacin Allergy Rash Verified 08/03/23 19:29
dog dander Allergy COUGH Verified 08/03/23 19:29
Iodinated Contrast Media Allergy XRAY Verified 08/03/23 19:29
[Iodinated Contrast- Oral DYE-RASH
and IV Dye]
pollen extracts Allergy COUGH Verified 08/03/23 19:29
Home Medications
dutasteride 0.5 mg capsule 0.5 mg PO DAILY 12/03/22
insulin glargine 100 unit/mL (3 mL) subcutaneous pen (Lantus Solostar U-100 Insulin) 10 unit SC HS 12/03/22
insulin lispro 100 unit/mL subcutaneous pen (Humalog KwikPen (U-100) Insulin) 3 - 6 unit SC AC 12/03/22
oxycodone 10 mg tablet 10 mg PO Q4HPRN PRN Moderate/Severe Pain 12/03/22
ondansetron 4 mg disintegrating tablet 4 mg PO Q8H PRN nausea and vomiting #10 tabs 06/08/23
Review of Systems
-
A 12 point ROS was completed and negative except as noted: Yes
Constitutional: Denies Fever or Chills
Respiratory: Denies Cough or Trouble Breathing
Cardiac: Denies Chest Pain or Palpitations
Abdomen/GI: Reports See HPI
Physical Exam
Vital Signs
Vital Signs
Temp Pulse Resp BP Pulse Ox
97.9 F 76 11 176/76 98
08/03/23 19:31 08/03/23 23:45 08/03/23 23:45 08/03/23 23:25 08/03/23 23:45
Physical Exam
General: Comfortable and Conversant
HEENT: Moist mucous membranes and Other (Sclera Icteric)
Respiratory: Clear and Non Labored Respirations
Cardiac: S1/S2 and Regular Rhythm
GI: Soft and Tender (Epigastric and RUQ without rebound or guarding)
Musculoskeletal: No Clubbing, No Cyanosis and No Edema
Skin: Warm, Dry and Jaundice
Neuro: Awake, Alert, Oriented and Nonfocal/grossly intact
Laboratory Results
-
08/03/23 19:50
08/03/23 19:50
Laboratory Results
Total Bilirubin 5.5 mg/dl (0.2-1.3) H 08/03/23 19:50
AST 193 U/L (17-59) H 08/03/23 19:50
ALT 119 U/L (0-50) H 08/03/23 19:50
Alkaline Phosphatase 316 U/L (38-126) H 08/03/23 19:50
Lipase 285 U/L (23-300) 08/03/23 19:50
Data Reviewed
-
CT Scan: Report Reviewed by me
Lab Data: Labs Reviewed by me
Old Records: Reviewed
Impression/Plan
-
Choledocholithiasis
-Consult GI
-Check Abd MRI/MRCP
-Continue to trend LFTs
-Continue NPO/IVFs
-Continue Zofran for nausea and Dilaudid for pain
Diabetes Mellitus, Type II
-Give half usual dose of Lantus
-Monitor sugars and continue coverage insulin
Chronic Pain with Opioid Dependence
-Continue Dilaudid IV prn until able to resume oral oxycodone
DVT proph: Lovenox
Code Status: Full Code
[2023-08-04] VITALS (9 sets, daily range): BP systolic 139–177; BP diastolic 72–97; BMI 24.8
[2023-08-04] MEDS: LANTUS 0.0500000000000000028 UNITS SC ×2 (01:29→21:41)
[2023-08-04 01:31] LABS: Glucose - Point of Care 177 mg/dl (70-99)
[2023-08-04] MEDS: NSS 1000 IV ×2 (02:22→19:26)
[2023-08-04] MEDS: DILAUDID 0.5 MG IV ×5 (02:26→23:08)
[2023-08-04 05:46] LABS: Glucose - Point of Care 213 mg/dl (70-99)
[2023-08-04] MEDS: NOVOLOG FLEXPEN-MODERATE RESISTANCE 3 UNITS SC ×3 (05:49→17:01)
[2023-08-04 06:59] LABS: Hematocrit 31.6 % (39.0-52.0); Hemoglobin 11.3 g/dL (13.0-18.0); Mean Corp Hgb Conc. 35.8 g/dL (33.0-37.0); Mean Platelet Volume 9.4 fL (7.4-10.4); Platelet Count 183 10^3/uL (130-400); Red Cell Dist. Width 16.4 % (11.5-14.5); White Blood Cell Count 7.9 10^3/uL (4.8-10.8)
[2023-08-04 07:44] LABS: ALT (SGPT) 109 U/L (0-50); AST (SGOT) 124 U/L (17-59); Albumin 3.1 g/dl (3.5-5.0); Alkaline Phosphatase 280 U/L (38-126); Blood Urea Nitrogen 11 mg/dl (9-20); Calcium 8.8 mg/dl (8.4-10.2); Carbon Dioxide 23 mmol/L (22-30); Chloride 103 mmol/L (98-107); Estimated Creatinine Clearance 90 ml/min; Glucose 210 mg/dl (70-99); Magnesium 1.6 mg/dl (1.6-2.3); Potassium 3.1 mmol/L (3.5-5.1); Sodium 135 mmol/L (135-145); Total Bilirubin 6.9 mg/dl (0.2-1.3); Total Protein 6.1 g/dl (6.3-8.2); eGFR > 60.00
[2023-08-04] MEDS: PROSCAR 5 MG PO (08:04)
[2023-08-04 08:55] LABS: Direct Bilirubin 3.8 mg/dl (0.0-0.4)
--- NOTE | 2023-08-04 09:13 | CON.GI ---
Addendum entered and electronically signed by Jimmy Correa MD 08/04/23 12:57:
I saw and examined the patient.
The DRAIN TILER's note was reviewed and I agree with the note.
Impression:
Right upper quadrant abdominal pain/Nausea/vomiting/ Elevated LFTs
MRI/MRCP
IMPRESSION:
1. Choledocholithiasis, with at least 2 filling defects in the distal common bile duct.
2. Trace amount of adjacent edema. No fluid collection.
3. Hepatosplenomegaly.
4. No enhancing mass on postcontrast imaging
plan
NPO
will schedule for ERCP today
trend LFT
Original Note:
Consultation
-
Date/Time Consultation Requested: 08/04/23 0157
Date/Time Consultation Performed: 08/04/23 0900
Requesting Provider: LISBET El
Performing Provider: Dr. Correa/BRADY Saeed
Reason for Consultation: elevated LFTs, CBD stone seen on CT imaging
Medical History
Chief Complaint / HPI
Chief Complaint: RUQ pain, N/V, jaundice
History of Present Illness:
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
history of intermittent right upper quadrant discomfort associated with nausea and vomiting. Patient noticed that he was jaundiced approximately 2 weeks ago and sought outpatient GI ([facility]) guidance. Represents to the hospital with
recurrence right upper quadrant discomfort with nausea and vomiting. Asked to evaluate for the same. The patient states that in May he had acute onset of right upper quadrant discomfort, nausea, vomiting and diarrhea. He came to the emergency
room and was given antiemetics. The patient states he felt better and was discharged home. He had a recurrence of symptoms again in the beginning of June. Similar to the time prior. He also had a 3rd nerve palsy left and was being followed by
ophthalmology with eye patching. He underwent imaging including a head CT, head CT angiography and a brain MRI in June. The patient states that he followed up with [facility] first week in July because he started noticing that he became jaundiced.
It was also noticed that he had elevated LFTs on his ER evaluation 06/25/2023. The patient did not have a chance to get lab work performed that was ordered. The patient then had recurrence of symptoms starting last that included right upper
quadrant pain that he describes as dull, radiating into the middle of his back although he is unsure because he has chronic back pain, nausea, vomiting, bilirubinuria. No changes in his bowel color. He has had chills usually when he vomits. No
documented fever. He denies any history of hepatitis, tattoos, piercings, IV drug use. No recent sick contacts. No changes in medications. No prior history of pancreatitis that he is aware of. The patient does not drink any alcohol.
Past Medical History
Past Medical History: Asthma, HTN, Hypercholesterolemia, IDDM and Other (chronic pain, IgM deficiency, BPH, 3rd nerve palsy)
Past Surgical History: Cholecystectomy, Orthopedic (left hip ) and Urological (vasectomy)
Social History
Tobacco: Non-Smoker
Alcohol: None
Drug: None
Personal:
Living: With Family
Family History
Family History: Other (No fam hx of GI malignancy or IBD)
Allergies / Home Medications
Allergy/AdvReac Type Severity Reaction Status Date / Time
iodine Allergy Severe Swelling Verified 08/04/23 02:23
cat dander Allergy COUGH Verified 08/03/23 19:29
ciprofloxacin Allergy Rash Verified 08/03/23 19:29
dog dander Allergy COUGH Verified 08/03/23 19:29
Iodinated Contrast Media Allergy XRAY Verified 08/03/23 19:29
[Iodinated Contrast- Oral DYE-RASH
and IV Dye]
pollen extracts Allergy COUGH Verified 08/03/23 19:29
�Medication �Instructions �Recorded
dutasteride 0.5 mg capsule 0.5 mg PO DAILY Urinary Issue 12/03/22
insulin glargine 100 unit/mL (3 10 unit SC HS Diabetes 12/03/22
mL) subcutaneous pen (Lantus
Solostar U-100 Insulin)
insulin lispro 100 unit/mL 3 - 6 unit SC AC Diabetes 12/03/22
subcutaneous pen (Humalog KwikPen
(U-100) Insulin)
oxycodone 10 mg tablet 10 mg PO Q4HPRN PRN 12/03/22
Moderate/Severe Pain
ondansetron 4 mg disintegrating 4 mg PO Q8H PRN nausea and 06/08/23
tablet vomiting #10 tabs
Review of Systems
-
All other systems: A 12 pt ROS was Negative except as stated above in HPI
Vital Signs
Temp Pulse Resp BP Pulse Ox
97.6 F 88 16 156/82 98
08/04/23 07:00 08/04/23 07:00 08/04/23 07:00 08/04/23 07:00 08/04/23 07:00
Physical Exam
Exam
General: Other (looks unwell)
HEENT: Other (+ sclera icteric)
Respiratory: Clear
Cardiac: Regular Rhythm
GI: Soft, Non Distended, Normal Bowel Sounds and Tender (RUQ/periumbilical)
Musculoskeletal: No Edema
Neuro: AO x 3
Psych: Calm
Results
WBC 7.9 10^3/uL (4.8-10.8) 08/04/23 06:30
Hgb 11.3 g/dL (13.0-18.0) L 08/04/23 06:30
Hct 31.6 % (39.0-52.0) L 08/04/23 06:30
MCV 81.0 fL (80.0-94.0) 08/04/23 06:30
Plt Count 183 10^3/uL (130-400) 08/04/23 06:30
Absolute Neuts (auto) 7.1 10^3/uL (1.4-6.5) H 08/03/23 19:50
Sodium 135 mmol/L (135-145) 08/04/23 06:30
Potassium 3.1 mmol/L (3.5-5.1) L 08/04/23 06:30
Chloride 103 mmol/L (98-107) 08/04/23 06:30
Carbon Dioxide 23 mmol/L (22-30) 08/04/23 06:30
BUN 11 mg/dl (9-20) 08/04/23 06:30
Creatinine 0.8 mg/dL (0.7-1.3) 08/04/23 06:30
Calcium 8.8 mg/dl (8.4-10.2) 08/04/23 06:30
Total Bilirubin 6.9 mg/dl (0.2-1.3) H 08/04/23 06:30
AST 124 U/L (17-59) H 08/04/23 06:30
ALT 109 U/L (0-50) H 08/04/23 06:30
Alkaline Phosphatase 280 U/L (38-126) H 08/04/23 06:30
Lipase 285 U/L (23-300) 08/03/23 19:50
Diagnostic Image Results:
CT Abd/Pelvis without oral or IV contrast 08/03/23:
IMPRESSION:
Markedly limited evaluation without intravenous or oral contrast.
Mild hepatosplenomegaly.
Prior cholecystectomy. Calcific density for which approximate 0.7 cm calculus at the level of the distal common bile duct as well as biliary tract dilatation cannot be excluded, evaluation limited without intravenous contrast. Recommend MRI/MRCP
complete evaluation.
Small volume and creatinine calcifications compatible with chronic pancreatitis.
Cannot exclude small duodenal diverticulum.
Small simple right renal cyst.
Marked beam hardening artifact from left hip arthroplasty significantly limiting evaluation of the true pelvic soft tissues.
Electronically signed by Anthony Rascon MD, 08/03/2023 10:49 PM
US Abd 06/08/23:
IMPRESSION:
Prior cholecystectomy. Common bile duct within normal limits, 7 mm. The pancreas is obscured by bowel gas.
Electronically signed by Gabe Garcia MD 06/08/2023 11:54 AM
Prior GI Procedures:
EGD:
Colonoscopy: [facility] (date and records not available to me)
Assessment / Plan
-
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
history of intermittent right upper quadrant discomfort associated with nausea and vomiting. Patient noticed that he was jaundiced approximately 2 weeks ago and sought outpatient GI ([facility]) guidance. Represents to the hospital with
recurrence right upper quadrant discomfort with nausea and vomiting. Asked to evaluate for the same. WBC 7.9, hemoglobin 11.3, hematocrit 31.6, platelets 183, Sodium 135, potassium 3.1, chloride 103, CO2 23, BUN 11, creatinine 0.8, glucose 210,
calcium 8.8, total bilirubin 6.9, direct bilirubin 3.8, AST 124, ALT 109, alk phos 280.
Impression:
Right upper quadrant pain
Nausea/vomiting
Elevated LFTs
Other diagnoses:
Recent left third nerve palsy
Diabetes
Chronic low back pain
Chronic opioid dependence
Plan:
-MRI/MRCP to be performed now, eval for CBD stone. Possible ERCP if MRCP positive.
-N.p.o./IV fluids
-Analgesia/antiemetics
-Add EBV/hepatitis panel
-Trend LFTs
-Further recommendations to be forthcoming
Data Reviewed
-
Old Records: Reviewed
-
-
Thank you for consultation and allowing me to participate in the patient's care. Please call the observation assistant GI physician during the after hours with any questions or concerns.
[2023-08-04 10:16] LABS: Glycohemoglobin (HgbA1c) 6.9 % (4.0-5.6)
[2023-08-04] MEDS: KCL 270 MEQ IV (10:19)
[2023-08-04] MEDS: ROCEPHIN 1000 MG IV (10:20)
[2023-08-04] MEDS: STERILE WATER FOR INJECTION 10 ML IV (10:20)
[2023-08-04 12:08] LABS: Glucose - Point of Care 215 mg/dl (70-99)
--- NOTE | 2023-08-04 12:58 | W.PN.HOSP.TC ---
Today's Communication/Plan
-
see outlined plan
Assessment / Plan
Assessment / Plan
Assessment:
Abdominal Pain, N/V
Abnormal LFTs/Hyperbilirubinemia
- CT: Prior cholecystectomy. Calcific density for which approximate 0.7 cm calculus at the level of the distal common bile duct as well as biliary tract dilatation cannot be excluded, evaluation limited without intravenous contrast. Recommend
MRI/MRCP complete evaluation.
- MRCP: Choledocholithiasis, with at least 2 filling defects in the distal common bile duct.
- GI following; for ERCP today
- continue pain control and anti-emetics
- continue IVF
Possibly UTI
- start Rocephin, pending cultures
IDDM
- continue Lantus, 5 units (home dose 10 units)
- continue SSI
- diabetic diet when cleared for diet
- A1c: 6.9%
Chronic Low Back Pain
Chronic Opioid Dependence
- continue IV Dilaudid for acute pain then transition back to Oxycodone post procedure
Hypokalemia - replete prn
DVT ppx: Lovenox
Code: Full
Anticipated Discharge: 24 - 48 hours
Subjective/Interval History
-
Date of Service: August 04, 2023
reports RUQ pain
no other new complaints
CBD filling defect found on MRI
Objective Data
-
Labs:
Laboratory Results
08/04/23
06:30
WBC 7.9
Hgb 11.3 L
Hct 31.6 L
Plt Count 183
Sodium 135
Potassium 3.1 L
Chloride 103
Carbon Dioxide 23
BUN 11
Creatinine 0.8
Glucose 210 H
Calcium 8.8
Total Bilirubin 6.9 H
AST 124 H
ALT 109 H
Alkaline Phosphatase 280 H
Vital Signs:
Vital Signs
Temp Pulse Resp BP Pulse Ox
97.6 F 88 16 156/82 98
08/04/23 07:00 08/04/23 07:00 08/04/23 07:00 08/04/23 07:00 08/04/23 07:00
I&O
08/03/23 08/04/23 08/05/23
06:59 06:59 06:59
Intake Total 400 / 400
Output Total 425 / 425
Balance -25 / -25
Physical Exam
-
General: No Apparent Distress
HEENT: Normocephalic and Atraumatic
Respiratory: Negative Wheezes
Cardiac: Regular Rhythm and S1/S2
GI: Other (RUQ pain)
Musculoskeletal: No Edema
Neuro: AO x 3
Psych: Calm
Data Reviewed
-
Total Time Spent with Patient (in minutes): 42
Labs: Labs Reviewed by me
[2023-08-04 14:00] LABS: Glucose - Point of Care 226 mg/dl (70-99)
[2023-08-04 16:39] LABS: Glucose - Point of Care 203 mg/dl (70-99)
[2023-08-04] MEDS: ZOSYN 50 IV ×2 (16:51→21:41)
[2023-08-04] MEDS: LOVENOX 40 MG SC (17:01)
[2023-08-04] MEDS: NOVOLOG FLEXPEN-MODERATE RESISTANCE SC (18:17)
[2023-08-04 18:51] LABS: Hepatitis B Surface Antigen Negative (Negative)
[2023-08-04 19:08] LABS: Hepatitis B Surface Antibody Negative; Hepatitis C Antibody Negative (Negative)
[2023-08-04 21:32] LABS: Glucose - Point of Care 252 mg/dl (70-99)
[2023-08-04 22:41] LABS: Hepatitis A IgM Antibody Negative (Negative); Hepatitis B Core Ab, IgM Negative (Negative)
[2023-08-05] MEDS: DILAUDID 0.5 MG IV ×3 (03:03→11:16)
[2023-08-05] MEDS: ZOSYN 50 IV ×4 (03:04→21:24)
[2023-08-05 06:00] VITALS: BMI 25.0
[2023-08-05 07:09] LABS: Hematocrit 31.3 % (39.0-52.0); Hemoglobin 10.8 g/dL (13.0-18.0); Mean Corp Hgb Conc. 34.5 g/dL (33.0-37.0); Mean Corpuscular Hgb 28.5 pg (27.0-31.0); Mean Corpuscular Volume 82.6 fL (80.0-94.0); Mean Platelet Volume 9.4 fL (7.4-10.4); Platelet Count 160 10^3/uL (130-400); Red Blood Cell Count 3.79 10^6/uL (4.70-6.10); Red Cell Dist. Width 15.9 % (11.5-14.5); White Blood Cell Count 7.2 10^3/uL (4.8-10.8)
[2023-08-05 07:37] VITALS: BP 138/76
[2023-08-05 07:51] LABS: Glucose - Point of Care 198 mg/dl (70-99)
[2023-08-05 07:56] LABS: ALT (SGPT) 77 U/L (0-50); AST (SGOT) 74 U/L (17-59); Albumin 2.9 g/dl (3.5-5.0); Alkaline Phosphatase 249 U/L (38-126); Blood Urea Nitrogen 15 mg/dl (9-20); Calcium 8.6 mg/dl (8.4-10.2); Carbon Dioxide 24 mmol/L (22-30); Chloride 103 mmol/L (98-107); Direct Bilirubin 5.6 mg/dl (0.0-0.4); Estimated Creatinine Clearance 80 ml/min; Glucose 155 mg/dl (70-99); Potassium 3.5 mmol/L (3.5-5.1); Sodium 135 mmol/L (135-145); Total Bilirubin 8.6 mg/dl (0.2-1.3); Total Protein 5.9 g/dl (6.3-8.2); eGFR > 60.00
[2023-08-05] MEDS: PROSCAR 5 MG PO (08:04)
[2023-08-05] MEDS: NOVOLOG FLEXPEN-MODERATE RESISTANCE 1 UNITS SC (08:05)
[2023-08-05 10:32] VITALS: BP 158/88; PULSE 72; O2SAT 99
[2023-08-05 10:35] VITALS: BP 158/88; PULSE 72; O2SAT 99
[2023-08-05] MEDS: NSS IV (10:37)
[2023-08-05 11:43] LABS: Glucose - Point of Care 257 mg/dl (70-99)
[2023-08-05] MEDS: NOVOLOG FLEXPEN-MODERATE RESISTANCE 5 UNITS SC (11:58)
--- NOTE | 2023-08-05 12:15 | W.PN.HOSP.TC ---
Today's Communication/Plan
-
diet
continue Abx
pain control
follow LFTs in AM
d/w GI
Assessment / Plan
Assessment / Plan
Assessment:
Abdominal Pain, N/V
Abnormal LFTs/Hyperbilirubinemia
- CT: Prior cholecystectomy. Calcific density for which approximate 0.7 cm calculus at the level of the distal common bile duct as well as biliary tract dilatation cannot be excluded, evaluation limited without intravenous contrast. Recommend
MRI/MRCP complete evaluation.
- MRCP: Choledocholithiasis, with at least 2 filling defects in the distal common bile duct.
- s/p ERCP 08/03: s/p biliary sphincterotomy and balloon extraction. Pus in biliary tree
- continue pain control and anti-emetics
- diet advance to Low residue
- Abx: Zosyn day 2
Possibly UTI
- culture negative
IDDM
- continue Lantus 10 units
- continue SSI
- diabetic diet when cleared for diet
- A1c: 6.9%
Chronic Low Back Pain
Chronic Opioid Dependence
- continue PO Oxycodone prn
Hypokalemia - replete prn
DVT ppx: Lovenox
Code: Full
Anticipated Discharge: 24 - 48 hours
Subjective/Interval History
-
Date of Service: August 05, 2023
pain improving
no fevers
Objective Data
-
Labs:
Laboratory Results
08/05/23
06:50
WBC 7.2
Hgb 10.8 L
Hct 31.3 L
Plt Count 160
Sodium 135
Potassium 3.5
Chloride 103
Carbon Dioxide 24
BUN 15
Creatinine 0.9
Glucose 155 H
Calcium 8.6
Total Bilirubin 8.6 H
AST 74 H
ALT 77 H
Alkaline Phosphatase 249 H
Vital Signs:
Vital Signs
Temp Pulse Resp BP Pulse Ox
97.9 F 70 16 138/76 98
08/05/23 07:37 08/05/23 07:37 08/05/23 07:37 08/05/23 07:37 08/05/23 07:37
I&O
08/04/23 08/05/23 08/06/23
06:59 06:59 06:59
Intake Total 400 / 400 2540 / 2540
Output Total 425 / 425 625 / 625
Balance -25 / -25 1914 / 1914
Physical Exam
-
General: No Apparent Distress
HEENT: Normocephalic and Atraumatic
Respiratory: Negative Wheezes
Cardiac: Regular Rhythm and S1/S2
GI: Soft and Tender (mild RUQ)
Genito-urinary: No Costovertebral Tender
Neuro: AO x 3
Psych: Calm
Data Reviewed
-
Total Time Spent with Patient (in minutes): 41
Labs: Labs Reviewed by me
--- NOTE | 2023-08-05 12:26 | CM ---
Reviewed chart, met with patient to obtain information for assessment. Patient lives with his in a single, two story home, with one step. He uses a cane for outside distances. He has been using a walker with PT. Patient described himself as
independent with his ADLs, dressing, and bathing. His does most of the social worker psychiatric, cooking, cleaning and laundry.
Patient has had VN services in the past through .
He has not been to a SNF but has done outpatient OT.
Patient stated that he has a walker and a shower chair.
He has a prescription plan and uses [facility] in [place] for all of her medications.
Patient's PCP is, Dr. Shayan Engle.
Patient stated that he would like to return home when he is medically stable. He would be agreeable to VN services if indicated for PT.
Plan: Case management will continue to follow and assist with discharge planning. Home with VN if indicated.
[2023-08-05] MEDS: ROXICODONE 10 MG PO ×3 (14:41→23:07)
[2023-08-05 15:10] VITALS: BP 164/82
--- NOTE | 2023-08-05 16:01 | W.PN.GI.CBS2 ---
Today's Communication / Plan
-
trend LFTs, IV abx, advance diet
Assessment / Plan
-
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
history of intermittent right upper quadrant discomfort associated with nausea and vomiting. Patient noticed that he was jaundiced approximately 2 weeks ago and sought outpatient GI ([facility]) guidance. Represents to the hospital with
recurrence right upper quadrant discomfort with nausea and vomiting. Asked to evaluate for the same. WBC 7.9, hemoglobin 11.3, hematocrit 31.6, platelets 183, Sodium 135, potassium 3.1, chloride 103, CO2 23, BUN 11, creatinine 0.8, glucose 210,
calcium 8.8, total bilirubin 6.9, direct bilirubin 3.8, AST 124, ALT 109, alk phos 280.
Impression:
Right upper quadrant pain
Nausea/vomiting
Elevated LFTs
Other diagnoses:
Recent left third nerve palsy
Diabetes
Chronic low back pain
Chronic opioid dependence
Underwent ERCP with stones and pus removed c/w cholangitis, sphincterotomy and balloons sweep done
I d/w biliary team - bili went up today, will recheck tomorrow, ok to advance diet to low fat; d/w hospitalist
No fever/WBC
Continue IV abx
Pt asking to follow with Dr. Correa watermelon harvesting supervisor I sent msg to hotel front office manager to set up appt - [place] [facility] [place] 4pm card given to patient
Total Time Spent with Patient (in minutes): 35
Subjective
Subjective
Date of Service: August 05, 2023
Pain improved tolerating diet
Objective
Data Reviewed
Laboratory Data:
Laboratory Results
08/05/23 06:50
08/05/23 06:50
Laboratory Results
Magnesium 1.6 mg/dl (1.6-2.3) 08/04/23 06:30
Total Bilirubin 8.6 mg/dl (0.2-1.3) H 08/05/23 06:50
AST 74 U/L (17-59) H 08/05/23 06:50
ALT 77 U/L (0-50) H 08/05/23 06:50
Alkaline Phosphatase 249 U/L (38-126) H 08/05/23 06:50
Lipase 285 U/L (23-300) 08/03/23 19:50
Vital Signs and I&O:
Vital Signs
Temp Pulse Resp BP Pulse Ox
98 F 70 16 164/82 100
08/05/23 15:10 08/05/23 15:10 08/05/23 15:10 08/05/23 15:10 08/05/23 15:10
I&O
08/04/23 08/05/23 08/06/23
06:59 06:59 06:59
Intake Total 400 / 400 2540 / 2540
Output Total 425 / 425 625 / 625
Balance -25 / -25 1914
Physical Exam
Physical Exam
GI: Non Distended and Non Tender
[2023-08-05 16:55] LABS: Glucose - Point of Care 212 mg/dl (70-99)
[2023-08-05] MEDS: LOVENOX 40 MG SC (17:02)
[2023-08-05] MEDS: NOVOLOG FLEXPEN-MODERATE RESISTANCE 3 UNITS SC (17:03)
[2023-08-05 17:24] LABS: EBV-EA (D) Ab IgG >150.0 U/mL (0.0-10.9); EBV-VCA IgG Antibodies >750.0 U/mL (0.0-21.9); EBV-VCA IgM Antibodies 52.9 U/mL (0.0-43.9)
[2023-08-05 21:24] LABS: Glucose - Point of Care 259 mg/dl (70-99)
[2023-08-05] MEDS: LANTUS 0.100000000000000006 UNITS SC (21:24)
[2023-08-05 23:00] VITALS: BP 163/83
[2023-08-06] MEDS: ROXICODONE 10 MG PO ×2 (03:07→07:47)
--- NOTE | 2023-08-06 03:49 | DOWNTIME ---
There was a [employer] Client Teletype Installer Downtime on 08/06/2023 from 0100 to 08/06/2023 at 0337. Downtime documentation of patient's care, including medication administrations, has been reconciled in the electronic record per guidelines. Refer to the
patient's paper chart under the miscellaneous tab to see printed paper medication records and downtime forms.
[2023-08-06] MEDS: ZOSYN 50 IV ×2 (04:13→09:28)
[2023-08-06 06:00] VITALS: BMI 25.2
[2023-08-06 07:02] LABS: % Basophils 0.8 % (0-2); % Eosinophils 3.7 % (0-6); % Immature Granulocytes 0.4 % (0-0.5); % Lymphocytes 21.3 % (20.5-51.1); % Monocytes 5.5 % (1.7-9.3); % Neutrophils 68.3 % (42.2-75.2); Absolute Eosinophils 0.2 10^3/uL (0-0.7); Absolute Lymphocytes 1.1 10^3/uL (1.2-3.4); Absolute Monocytes 0.3 10^3/uL (0.1-0.6); Absolute Neutrophils 3.5 10^3/uL (1.4-6.5); Hematocrit 29.7 % (39.0-52.0); Hemoglobin 10.8 g/dL (13.0-18.0); Mean Corp Hgb Conc. 36.4 g/dL (33.0-37.0); Mean Corpuscular Volume 79.8 fL (80.0-94.0); Mean Platelet Volume 9.4 fL (7.4-10.4); Nucleated Red Blood Cells % 0 % (-); Platelet Count 171 10^3/uL (130-400); Red Blood Cell Count 3.72 10^6/uL (4.70-6.10); Red Cell Dist. Width 15.8 % (11.5-14.5); White Blood Cell Count 5.1 10^3/uL (4.8-10.8)
[2023-08-06 07:45] VITALS: BP 160/94
[2023-08-06] MEDS: PROSCAR 5 MG PO (07:49)
[2023-08-06 07:58] LABS: Glucose - Point of Care 174 mg/dl (70-99)
[2023-08-06 08:20] LABS: ALT (SGPT) 62 U/L (0-50); AST (SGOT) 44 U/L (17-59); Alkaline Phosphatase 242 U/L (38-126); Blood Urea Nitrogen 12 mg/dl (9-20); Calcium 8.5 mg/dl (8.4-10.2); Carbon Dioxide 26 mmol/L (22-30); Chloride 101 mmol/L (98-107); Direct Bilirubin 2.4 mg/dl (0.0-0.4); Estimated Creatinine Clearance 72 ml/min; Glucose 152 mg/dl (70-99); Potassium 3.1 mmol/L (3.5-5.1); Sodium 135 mmol/L (135-145); Total Bilirubin 4.4 mg/dl (0.2-1.3); Total Protein 5.9 g/dl (6.3-8.2); eGFR > 60.00
[2023-08-06] MEDS: NOVOLOG FLEXPEN-MODERATE RESISTANCE 1 UNITS SC (09:26)
[2023-08-06] MEDS: KCL 40 MEQ PO (09:27)
--- NOTE | 2023-08-06 09:29 | W.PN.HOSP.TC ---
Today's Communication/Plan
-
dc to home today
repeat LFTs outpatient
Assessment / Plan
Assessment / Plan
Assessment:
Abdominal Pain, N/V
Abnormal LFTs/Hyperbilirubinemia
- CT: Prior cholecystectomy. Calcific density for which approximate 0.7 cm calculus at the level of the distal common bile duct as well as biliary tract dilatation cannot be excluded, evaluation limited without intravenous contrast. Recommend
MRI/MRCP complete evaluation.
- MRCP: Choledocholithiasis, with at least 2 filling defects in the distal common bile duct.
- s/p ERCP 08/03: s/p biliary sphincterotomy and balloon extraction. Pus in biliary tree
- continue pain control and anti-emetics
- diet advance to Low fat
- Abx: discharge on Augmentin x 6 days further
- OP G/I Follow up
Possibly UTI
- culture negative
IDDM
- continue Lantus 10 units
- continue SSI
- diabetic diet when cleared for diet
- A1c: 6.9%
Chronic Low Back Pain
Chronic Opioid Dependence
- continue PO Oxycodone prn
Hypokalemia - replete prn
DVT ppx: Lovenox
Code: Full
More than 30 minutes spent in discharge including
Final examination of the patient
Summarizing hospital stay
Instructions for continuing care to all relevant caregivers
Preparation of discharge records, prescriptions, and referral forms
Total time spent (in minutes): 41
Anticipated Discharge: Today
Subjective/Interval History
-
Date of Service: August 06, 2023
no fever, pain or chills
WBC normal
Objective Data
-
Labs:
Laboratory Results
08/06/23
06:21
WBC 5.1
Hgb 10.8 L
Hct 29.7 L
Plt Count 171
Sodium 135
Potassium 3.1 L
Chloride 101
Carbon Dioxide 26
BUN 12
Creatinine 1.0
Glucose 152 H
Calcium 8.5
Total Bilirubin 4.4 H
AST 44
ALT 62 H
Alkaline Phosphatase 242 H
Vital Signs:
Vital Signs
Temp Pulse Resp BP Pulse Ox
98 F 69 16 160/94 99
08/06/23 07:45 08/06/23 07:45 08/06/23 07:45 08/06/23 07:45 08/06/23 07:45
I&O
08/05/23 08/06/23 08/07/23
06:59 06:59 06:59
Intake Total 2540 / 2540 1900 / 1900
Output Total 625 / 625 950 / 950
Balance 1915 / 1915 950 / 950
Physical Exam
-
General: No Apparent Distress
HEENT: Normocephalic and Atraumatic
Respiratory: Negative Wheezes
Cardiac: Regular Rhythm and S1/S2
GI: Soft and Nontender
Genito-urinary: No Costovertebral Tender
Neuro: AO x 3
Hematologic / Lymphatic: No Lymphadenopathy
Psych: Calm
Data Reviewed
-
Total Time Spent with Patient (in minutes): 41
Labs: Labs Reviewed by me
--- NOTE | 2023-08-06 09:39 | W.DS.TRANS ---
DC Summary - [employer]man
-
Discharge Instructions:
Discharge Diagnosis/Procedures common bile duct stones s/p ERCP 08/03
Diet Low Fat
Activity As tolerated
Bathing Restrictions None
Blood Work Repeat liver function tests Thursday 08/10
Other Services OT,PT
Instructions:
Stand-Alone Forms:
Changes to Home Medications: No
Discharge Medications:
DC Medications w/original date entered in [facility]
dutasteride 0.5 mg capsule 0.5 mg PO DAILY Urinary Issue 12/03/22
insulin glargine 100 unit/mL (3 mL) subcutaneous pen (Lantus Solostar U-100 Insulin) 10 unit SC HS Diabetes 12/03/22
insulin lispro 100 unit/mL subcutaneous pen (Humalog KwikPen (U-100) Insulin) 3 - 6 unit SC AC Diabetes 12/03/22
oxycodone 10 mg tablet 10 mg PO Q4HPRN PRN Moderate/Severe Pain 12/03/22
ondansetron 4 mg disintegrating tablet 4 mg PO Q8H PRN nausea and vomiting #10 tabs 06/08/23
amoxicillin 875 mg-potassium clavulanate 125 mg tablet 1 tab PO Q12H #12 tabs 08/06/23
Home Medication Changes
Pending Results: No
Total time spent discharging patient (in min): 41
--- NOTE | 2023-08-06 09:47 | W.PN.GI.CBS2 ---
Addendum entered and electronically signed by Rachel Rico MD 08/06/23 11:24:
I saw and examined the patient.
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
Comment: 72-year-old male past medical history as below presenting with cholangitis. Status post ERCP as below. LFTs improved. No pain, fevers, white blood cell count. Plan for discharge with 7-day course of antibiotics. Follow-up Dr. Correa
outpatient. Repeat LFTs in 1 week.
Original Note:
Today's Communication / Plan
-
Okay for discharge from GI standpoint. He will continue on a total of 7-day course of antibiotics. Repeat LFTs on Friday. He has a follow-up with Dr. Correa in the office. GI will sign off, please call back with questions or concerns
Assessment / Plan
-
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
with 2-month history of intermittent right upper quadrant discomfort associated with nausea and vomiting. Patient noticed that he was jaundiced approximately 2 weeks ago and sought outpatient GI ([facility]) guidance. He then presented to the ""hospital with recurrence of right upper quadrant discomfort with nausea and vomiting. Asked to evaluate for the same. WBC 7.9, hemoglobin 11.3, hematocrit 31.6, platelets 183, Sodium 135, potassium 3.1, chloride 103, CO2 23, BUN 11, creatinine
0.8, glucose 210, calcium 8.8, total bilirubin 6.9, direct bilirubin 3.8, AST 124, ALT 109, alk phos 280.
08/04/23 ERCP: Choledocholithiasis was found. Complete removal was accomplished by biliary sphincterotomy and balloon extraction. A biliary sphincterotomy was performed. The biliary tree was swept and pus/ sludge was found.
Problem list:
-Cholangitis
-Right upper quadrant pain 2/2 choledocholithiasis
-Nausea/vomiting
-Elevated LFTs
Other diagnoses:
-Recent left third nerve palsy
-Diabetes
-Chronic low back pain
-Chronic opioid dependence
Recommendations:
-Status post ERCP with findings of pus in the biliary tree, concerning for cholangitis. Today his symptoms are improved and his LFTs are downtrending. He is tolerating his diet.
-He should continue on a course of antibiotics for a total of [address] Rico and Dr. Quarles.
-Will repeat his LFT's on Thursday 08/10
-He has a follow-up appointment scheduled with Dr. Correa on 08/28 at 4 PM. He does have a card and this is on his instruction for discharge.
-I did give him precautions to return to the ER which include fevers, chills, abdominal pain, or ongoing/worsening jaundice
-Advise she should continue on a low-fat diet.
-He should avoid alcohol completely
-At this point he is okay for discharge from GI standpoint. Will sign off, please call back with questions or concerns.
Subjective
Subjective
Date of Service: August 06, 2023
The patient was seen and examined at the bedside. He reports he feels well today and is tolerating his diet. He is anticipating discharge. His LFTs are trending down and he has had no fevers.
Objective
Data Reviewed
Laboratory Data:
Laboratory Results
08/06/23 06:21
08/06/23 06:21
Laboratory Results
Magnesium 1.6 mg/dl (1.6-2.3) 08/04/23 06:30
Total Bilirubin 4.4 mg/dl (0.2-1.3) H 08/06/23 06:21
AST 44 U/L (17-59) 08/06/23 06:21
ALT 62 U/L (0-50) H 08/06/23 06:21
Alkaline Phosphatase 242 U/L (38-126) H 08/06/23 06:21
Lipase 285 U/L (23-300) 08/03/23 19:50
Vital Signs and I&O:
Vital Signs
Temp Pulse Resp BP Pulse Ox
98 F 69 16 160/94 99
08/06/23 07:45 08/06/23 07:45 08/06/23 07:45 08/06/23 07:45 08/06/23 07:45
I&O
08/05/23 08/06/23 08/07/23
06:59 06:59 06:59
Intake Total 2540 / 2540 1900 / 1900
Output Total 625 / 625 950 / 950
Balance 1914 / 1914 950 / 950
Physical Exam
Physical Exam
HEENT: Other (Mild bilateral scleral icterus)
Cardiology: S1 and S2 (Regular rate/rhythm)
Pulmonary: Clear
GI: Soft, Non Distended, Tender (Minimally tender to the right lower quadrant) and Normal Bowel Sounds
Extremities: No Edema
Jaundice
== END 2023-08-06 11:04 | disposition home or self-care (01) | DRG 445 ==
LOC: 3 WEST ACU 23:59
PROVIDERS: Nurse Practitioner; Physician Assistant Medical; ADMITTING PHYSICIAN Hospitalist; ATTENDING PHYSICIAN Internal Medicine; CONSULT PHYSICIAN Internal Medicine Gastroenterology; EMERGENCY PHYSICIAN Emergency Medicine; FAMILY PHYSICIAN Family Medicine
PROC: BF111ZZ Fluoroscopy of Biliary and Pancreatic Ducts using Low Osmolar Contrast (ICD-10-PCS; 2023-08-04)
PROC: 0FC98ZZ Extirpation of Matter from Common Bile Duct, Via Natural or Artificial Opening Endoscopic (ICD-10-PCS; 2023-08-04)
DX: K80.30 Calculus of bile duct with cholangitis, unspecified, without obstruction (principal); F11.20 Opioid dependence, uncomplicated; K86.1 Other chronic pancreatitis; N39.0 Urinary tract infection, site not specified; E11.40 Type 2 diabetes mellitus with diabetic neuropathy, unspecified; E78.00 Pure hypercholesterolemia, unspecified; I10 Essential (primary) hypertension; J45.909 Unspecified asthma, uncomplicated; E87.6 Hypokalemia; N28.1 Cyst of kidney, acquired; R16.2 Hepatomegaly with splenomegaly, not elsewhere classified; R31.0 Gross hematuria; G89.29 Other chronic pain; M54.50 Low back pain, unspecified; M19.90 Unspecified osteoarthritis, unspecified site; N40.0 Benign prostatic hyperplasia without lower urinary tract symptoms; Z88.1 Allergy status to other antibiotic agents; Z90.49 Acquired absence of other specified parts of digestive tract; Z91.041 Radiographic dye allergy status; Z79.4 Long term (current) use of insulin
CPT/HCPCS: 74176; 74183; 74330; 76000; 80053; 80143; 81003; 81015; 82248; 82962; 83036; 83690; 83735; 85025; 85027; 86663; 86664; 86665; 86705; 86706; 86709; 86803; 87086; 87340; 93005; 96374; 96375; 97162; 97166; 99285; A9575; C1769

== ENCOUNTER → 2023-10-27 11:22 | Outpatient (REF) | payer MEDICARE, SELFPAY | LOC: HWRAD 11:22 | PROVIDERS: ATTENDING PHYSICIAN Internal Medicine Gastroenterology; FAMILY PHYSICIAN Physician Assistant | DX: R10.11 Right upper quadrant pain (principal) | CPT/HCPCS: 71111; 74018 ==

== ENCOUNTER → 2023-12-05 10:37 | Outpatient (REF) | payer MEDICARE, SELFPAY | LOC: HWRAD 10:37 | PROVIDERS: ATTENDING PHYSICIAN Physician Assistant; REFERRING PHYSICIAN Internal Medicine Gastroenterology | DX: R10.11 Right upper quadrant pain (principal); Z90.49 Acquired absence of other specified parts of digestive tract; K59.03 Drug induced constipation; E11.69 Type 2 diabetes mellitus with other specified complication | CPT/HCPCS: 76700 ==

== ENCOUNTER → 2023-12-12 14:28 | Outpatient (REF) | payer MEDICARE, SELFPAY | LOC: MRI 3T 14:28 | PROVIDERS: ATTENDING PHYSICIAN Physician Assistant | DX: R10.11 Right upper quadrant pain (principal); R17 Unspecified jaundice | CPT/HCPCS: 74181 ==

== ENCOUNTER → 2023-12-25 15:17 | Outpatient (REF) | payer MEDICARE, SELFPAY | LOC: PAVMRI 15:17 | PROVIDERS: ATTENDING PHYSICIAN Student in an Organized Health Care Education/Training Program; FAMILY PHYSICIAN Physician Assistant | DX: M54.50 Low back pain, unspecified (principal) | CPT/HCPCS: 72148 ==

== ENCOUNTER → 2024-05-18 11:43 | Outpatient (REF) | payer MEDICARE, SELFPAY | LOC: HWRAD 11:43 | PROVIDERS: ATTENDING PHYSICIAN Physician Assistant | DX: M25.561 Pain in right knee (principal); M25.511 Pain in right shoulder; M25.551 Pain in right hip; W19.XXXA Unspecified fall, initial encounter | CPT/HCPCS: 73030; 73502; 73564 ==

== ENCOUNTER → 2025-01-21 09:22 | Outpatient (REF) | payer MEDICARE, SELFPAY | LOC: PAVMRI 09:22 | PROVIDERS: ATTENDING PHYSICIAN Internal Medicine Gastroenterology; FAMILY PHYSICIAN Physician Assistant | DX: K86.2 Cyst of pancreas (principal) | CPT/HCPCS: 74183; A9575 ==